=== PATIENT | male | born 1955 | race Caucasian/White ===

== ENCOUNTER 2017-11-17 15:53 | Emergency (ER) | payer SELFPAY ==
[2017-11-17] MEDS ORDERED: Sodium Chloride 0.9% 1,000 ML IV ONE (16:39)
[2017-11-17] MEDS ORDERED: Ondansetron 4 MG/2 ML SDV IVPUSH ONE (16:40)
[2017-11-17] MEDS ORDERED: Sodium Chloride 0.9% 10 ML Syringe FLUSH PRN (16:40)
--- NOTE | 2017-11-17 16:56 | EDM.PDOC ---
ED HPI GENERAL MEDICAL PROBLEM - General Chief Complaint: Genitourinary Problem Stated Complaint: PEEING BLOOD Time Seen by Provider: 11/17/17 16:27 Source of Information: Reports: Patient History Limitations: Reports: No Limitations - History of Present Illness INITIAL COMMENTS - FREE TEXT/NARRATIVE: 62-year-old male presents for evaluation and treatment of gross hematuria. Patient reports he is a history of bladder cancer, first diagnosed in 2014. He was managed at [facility] in [place], [place]. He states that he had a procedure done and was told that they removed all the cancer. He states it was recommended he proceed with chemotherapy and radiation but he refused. Patient reports over the last 6 months he is now had intermittent hematuria. States over the last 3 days it has been more constant. He is passing large clots. He is reporting difficulty with urination due to these clots. He reports urgency and dysuria. He is also complaining of lower back pain and pain to his lower abdomen. Additionally, he has appreciated with weakness, fatigue, lightheadedness and nausea. He has not checked his weight and is unsure if he's had any weight loss. No vomiting. Patient recently relocated to [place] from [place]. He has not yet established with a primary care provider since moving here. He is currently on [place] Medicaid and has not yet switched insurance. Patient reports he is a current every day smoker. States that he smokes at least a pack of cigarettes a day. reports he drinks beer daily. Drinks 5-8 beers per day. Lower Back Pain Score (Numeric/FACES): 6 - Related Data Allergies Allergy/AdvReac Type Severity Reaction Status Date / Time No Known Allergies Allergy Verified 11/17/17 15:59 Home Meds: Home Meds Albuterol [Ventolin HFA] 1 puff INH BID 11/17/17 [History] Aspirin 81 mg PO DAILY 11/17/17 [History] Cranberry 500 mg PO DAILY 11/17/17 [History] Losartan [Cozaar] 50 mg PO DAILY 11/17/17 [History] Past Medical History Cardiovascular History: Reports: Hypertension, Other (See Below) Other Cardiovascular History: mitral valve prolapse Respiratory History: Reports: COPD Gastrointestinal History: Reports: Other (See Below) Other Gastrointestinal History: perforated ulcer Oncologic (Cancer) History: Reports: Bladder Social & Family History - Tobacco Use Smoking Status *Q: Current Every Day Smoker Years of Tobacco use: 50 Packs/Tins Daily: 1 - Alcohol Use Days Per Week of Alcohol Use: 7 Number of Drinks Per Day: 6 Total Drinks Per Week: 42 - Recreational Drug Use Recreational Drug Use: No ED ROS GENERAL - Review of Systems Review Of Systems: See Below Constitutional: Reports: Weakness, Fatigue GI/Abdominal: Reports: Abdominal Pain (lower abdomen), Nausea. Denies: Vomiting : Reports: Dysuria, Frequency, Hematuria, Urgency Musculoskeletal: Reports: Back Pain (low back) ED EXAM, RENAL/ - Physical Exam Exam: See Below Exam Limited By: No Limitations General Appearance: Alert, WD/WN, No Apparent Distress Ears: Normal External Exam Nose: Normal Inspection Throat/Mouth: Normal Inspection, Normal Voice, No Airway Compromise Respiratory/Chest: No Respiratory Distress, Lungs Clear, Normal Breath Sounds Cardiovascular: Normal Peripheral Pulses, Regular Rate, Rhythm, No Murmur GI/Abdominal: Normal Bowel Sounds, Soft, Distended, Tender (lower abdomen) Back Exam: Normal Inspection. No: CVA Tenderness (L), CVA Tenderness (R) Neurological: Alert, Oriented, Normal Cognition Psychiatric: Normal Affect, Normal Mood Skin Exam: Warm, Dry, Normal Color Course - Vital Signs Last Recorded V/S: Last Vital Signs Temp 97.8 F 11/17/17 15:56 Pulse 97 11/17/17 15:56 Resp 16 11/17/17 15:56 BP 179/69 H 11/17/17 15:56 Pulse Ox 93 L 11/17/17 15:56 - Orders/Labs/Meds Orders: Active Orders 24 hr Category Date Time Status Peripheral IV Care [RC] . DIRECTED Care 11/17/17 16:43 Active Abdomen Pelvis w Cont [CT] Stat Exams 11/17/17 16:40 Taken Peripheral IV Insertion Adult [OM.PC] Routine Oth 11/17/17 16:39 Ordered Labs: Laboratory Tests 11/17/17 11/17/17 11/17/17 Range/Units 16:05 16:45 16:45 WBC 10.07 H (4.23-9.07) K/mm3 RBC 4.25 L (4.63-6.08) M/mm3 Hgb 13.3 L (13.7-17.5) gm/L Hct 39.1 L (40.1-51.0) % MCV 92.0 (79.0-92.2) fl MCH 31.3 (25.7-32.2) pg MCHC 34.0 (32.2-35.5) g/dl RDW Std Deviation 44.8 H (35.1-43.9) fL Plt Count 205 (163-337) K/mm3 MPV 10.0 (9.4-12.3) fl Neutrophils % (Manual) 77 H (40-60) % Band Neutrophils % 0 (0-10) % Lymphocytes % (Manual) 17 L (20-40) % Atypical Lymphs % 0 % Monocytes % (Manual) 3 (2-10) % Eosinophils % (Manual) 3 (0.8-7.0) % Basophils % (Manual) 0 L (0.2-1.2) Platelet Estimate Adequate Plt Morphology Comment Normal Anisocytosis 1+ slight RBC Morph Comment Not Reportable PT (9.5-12.1) SECONDS INR APTT (24-31) SECONDS Sodium 135 L (136-145) mEq/L Potassium 3.6 (3.5-5.1) mEq/L Chloride 100 (98-107) mEq/L Carbon Dioxide 24 (21-32) mEq/L Anion Gap 14.6 (5-15) BUN 4 L (7-18) mg/dL Creatinine 0.8 (0.7-1.3) mg/dL Est Cr Clr Drug Dosing 102.39 mL/min Estimated GFR (MDRD) > 60 (>60) mL/min BUN/Creatinine Ratio 5.0 L (14-18) Glucose 104 (80-115) mg/dL Calcium 8.5 (8.5-10.1) mg/dL Total Bilirubin 0.5 (0.2-1.0) mg/dL AST 14 L (15-37) U/L ALT 23 (16-63) U/L Alkaline Phosphatase 91 (46-116) U/L Total Protein 6.8 (6.4-8.2) g/dl Albumin 3.3 L (3.4-5.0) g/dl Globulin 3.5 gm/dL Albumin/Globulin Ratio 0.9 L (1-2) Urine Color Red H (Yellow) Urine Appearance Turbid H (Clear) Urine pH 8.5 H (5.0-8.0) Ur Specific [place] 1.010 (1.005-1.030) Urine Protein 3+ H (Negative) Urine Glucose (UA) Trace H (Negative) Urine Ketones 2+ H (Negative) Urine Occult Blood 3+ H (Negative) Urine Nitrite Negative (Negative) Urine Bilirubin 3+ H (Negative) Urine Urobilinogen >=8.0 H (0.2-1.0) Ur Leukocyte Esterase 3+ H (Negative) Urine RBC >100 H (0-5) /hpf Urine WBC >100 H (0-5) /hpf Ur Epithelial Cells 0-5 (0-5) /hpf Urine Bacteria Few (FEW) /hpf Urine Mucus Not seen (FEW) /hpf 11/17/17 Range/Units 16:45 WBC (4.23-9.07) K/mm3 RBC (4.63-6.08) M/mm3 Hgb (13.7-17.5) gm/L Hct (40.1-51.0) % MCV (79.0-92.2) fl MCH (25.7-32.2) pg MCHC (32.2-35.5) g/dl RDW Std Deviation (35.1-43.9) fL Plt Count (163-337) K/mm3 MPV (9.4-12.3) fl Neutrophils % (Manual) (40-60) % Band Neutrophils % (0-10) % Lymphocytes % (Manual) (20-40) % Atypical Lymphs % % Monocytes % (Manual) (2-10) % Eosinophils % (Manual) (0.8-7.0) % Basophils % (Manual) (0.2-1.2) Platelet Estimate Plt Morphology Comment Anisocytosis RBC Morph Comment PT 11.5 (9.5-12.1) SECONDS INR 1.06 APTT 29 (24-31) SECONDS Sodium (136-145) mEq/L Potassium (3.5-5.1) mEq/L Chloride (98-107) mEq/L Carbon Dioxide (21-32) mEq/L Anion Gap (5-15) BUN (7-18) mg/dL Creatinine (0.7-1.3) mg/dL Est Cr Clr Drug Dosing mL/min Estimated GFR (MDRD) (>60) mL/min BUN/Creatinine Ratio (14-18) Glucose (80-115) mg/dL Calcium (8.5-10.1) mg/dL Total Bilirubin (0.2-1.0) mg/dL AST (15-37) U/L ALT (16-63) U/L Alkaline Phosphatase (46-116) U/L Total Protein (6.4-8.2) g/dl Albumin (3.4-5.0) g/dl Globulin gm/dL Albumin/Globulin Ratio (1-2) Urine Color (Yellow) Urine Appearance (Clear) Urine pH (5.0-8.0) Ur Specific [place] (1.005-1.030) Urine Protein (Negative) Urine Glucose (UA) (Negative) Urine Ketones (Negative) Urine Occult Blood (Negative) Urine Nitrite (Negative) Urine Bilirubin (Negative) Urine Urobilinogen (0.2-1.0) Ur Leukocyte Esterase (Negative) Urine RBC (0-5) /hpf Urine WBC (0-5) /hpf Ur Epithelial Cells (0-5) /hpf Urine Bacteria (FEW) /hpf Urine Mucus (FEW) /hpf Meds: Medications Discontinued Medications Generic Name Dose Route Start Last Admin Trade Name Freq PRN Reason Stop Dose Admin Sodium Chloride 1,000 mls @ 999 mls/hr 11/17/17 16:39 11/17/17 16:50 Normal Saline IV 11/17/17 17:39 999 mls/hr ONETIME ONE Administration Iopamidol 100 ml 11/17/17 16:59 11/17/17 18:16 Isovue-300 (61%) IVPUSH 11/17/17 17:00 100 ml ONETIME ONE Administration Ondansetron HCl 4 mg 11/17/17 16:40 11/17/17 16:51 Zofran IVPUSH 11/17/17 16:41 4 mg ONETIME ONE Administration Sodium Chloride 10 ml 11/17/17 16:40 11/17/17 16:51 Saline Flush FLUSH 10 ml ASDIRECTED PRN Administration Keep Vein Open - Radiology Interpretation Free Text/Narrative:: CT of the abdomen and pelvis with IV contrast impression per vrad: Enhancing soft tissue mass along the right side of the bladder. Differential considerations would include transitional cell carcinoma. Bladder wall thickening is also present which may be consistent with cystitis. Right inguinal lymphadenopathy is present. - Re-Assessments/Exams Free Text/Narrative Re-Assessment/Exam: 11/17/17 19:47 I reviewed the labs and imaging with the patient. Case discussed with Dr. Gimenez, urologist [employer]. Unfortunately he will be out of town for the next few weeks to months. He recommend calling the clinic on Saturday to schedule with one of the urologists in [place]. Recommended increasing fluids and decrease in activity. Discussed labs and imaging with the patient. Will discharge home tonight. Warned of possibility of absent urine flow due to clots. He is to return to the ER this problem. Will discharge home at this time. Discharge instructions as documented. Departure - Departure Time of Disposition: 19:55 Disposition: Home, Self-Care 01 Condition: Fair Clinical Impression: Mass of bladder - Discharge Information *PRESCRIPTION DRUG MONITORING PROGRAM REVIEWED*: No *COPY OF PRESCRIPTION DRUG MONITORING REPORT IN PATIENT SOLOMON: No Instructions: Bladder Cancer, Hematuria, Adult Referrals: PCP,None [Primary Care Provider] - Brandon Camacho MD [Ordering Only Provider] - Forms: ED Department Discharge Additional Instructions: Follow-up with urology. Call [phone] tomorrow to schedule with an appointment with the urologist in [place]. Please let them know you were in the ED tonight and were found to have a mass in your bladder. Recommend Dr. Camacho at [facility] in [place]. Make sure you're drinking plenty of fluids. Limit activity. Please return to the ER if your symptoms change or worsen. Please return if you are unable to urinate due to clots. - My Orders Last 24 Hours: My Active Orders 11/17/17 16:39 Peripheral IV Insertion Adult [OM.PC] Routine 11/17/17 16:40 Abdomen Pelvis w Cont [CT] Stat 11/17/17 16:43 Peripheral IV Care [RC] . DIRECTED - Assessment/Plan Last 24 Hours: My Active Orders 11/17/17 16:39 Peripheral IV Insertion Adult [OM.PC] Routine 11/17/17 16:40 Abdomen Pelvis w Cont [CT] Stat 11/17/17 16:43 Peripheral IV Care [RC] . DIRECTED
[2017-11-17] MEDS ORDERED: Iopamidol 612 MG/ML 100 ML Bottle IVPUSH ONE (16:59)
--- NOTE | 2017-11-18 07:30 | CT ---
CT abdomen and pelvis Technique: Multiple axial sections were obtained from above the dome of the diaphragm inferiorly through the pubic symphysis. Intravenous contrast was utilized. No oral contrast has been given. Delayed images were also obtained through the abdomen and pelvis. Comparison: No prior abdominal imaging. Findings: Soft tissue abnormality seen along the lateral right side of the bladder. This finding measures about 5.6 cm x 3.2 cm. There appears to be some thickening of the bladder wall more posteriorly possibly due to extension of this finding. Delayed images show contrast within the distal ureters. Small bladder diverticulum seen off the left side. This finding is highly suspicious for transitional cell carcinoma. Multiple small low density findings are seen within the right kidney most likely due to small cortical cysts. Largest finding within the right kidney measures about 1.5 cm which is compatible with a cyst. Left kidney shows no focal abnormality. Contrast excretion is seen from both kidneys. Right and left ureters appear within normal limits. Soft tissue abnormality within the bladder appears to surround the distal right ureter. Visualized lung bases show nothing acute. Liver shows no focal parenchymal abnormality. Spleen appears within normal limits. Adrenal glands show no nodule. Pancreas is within normal limits. Gallbladder contains no calcified gallstones. Aorta shows atherosclerotic change which continues into the iliac vessels without aneurysm. No retroperitoneal adenopathy is seen. Appendix is seen and is normal in size. No pelvic mass or adenopathy is seen. Several slightly prominent lymph nodes are noted within the right inguinal region. Bone window settings were reviewed which appear within normal limits for the patient's age. Impression: 1. Soft tissue mass involving the right side of the bladder wall with measurements as noted above. Possible extension of this mass along the posterior bladder wall is seen. This finding is highly suspicious for transitional cell carcinoma. This finding surrounds a portion of the distal right ureter but causes no ureteral dilatation. Very small bladder diverticulum is noted off the left side of the bladder. 2. Low density lesions within the right kidney which most likely represent cysts. 3. Mild right inguinal adenopathy is seen. Diagnostic code #9 I agree with preliminary report from [facility], finalized at 11/17/17, 8:18 PM Central Time
== END 2017-11-17 20:00 | disposition home or self-care (01) ==
LOC: JD.ED 15:53
DX: N32.89 Other specified disorders of bladder (principal); R31.0 Gross hematuria; F17.210 Nicotine dependence, cigarettes, uncomplicated; J44.9 Chronic obstructive pulmonary disease, unspecified; Z79.82 Long term (current) use of aspirin; Z79.899 Other long term (current) drug therapy
CPT/HCPCS: 36415; 74177; 80053; 81001; 85007; 85027; 85610; 85730; 96361; 96374; 99284; J2405; J7040; J7050; Q9967

== ENCOUNTER 2017-11-21 09:33 | Emergency (ER) | payer MEDICAID ==
[2017-11-21] MEDS ORDERED: Sodium Chloride 0.9% 10 ML Syringe FLUSH PRN (10:13)
[2017-11-21] MEDS ORDERED: Sodium Chloride 0.9% 1,000 ML IV SCH (10:15)
[2017-11-21] MEDS ORDERED: cefTRIAXone 2 GM in Sodium Chloride 0.9% 100 ML IV ONE (12:19)
--- NOTE | 2017-11-21 12:51 | EDM.PDOC ---
ED HPI GENERAL MEDICAL PROBLEM - General Chief Complaint: Genitourinary Problem Stated Complaint: [facility] Time Seen by Provider: 11/21/17 09:46 Source of Information: Reports: Patient, EMS, Family History Limitations: Reports: No Limitations - History of Present Illness INITIAL COMMENTS - FREE TEXT/NARRATIVE: The patient presents by [facility] for hematuria. He is also lightheaded and feels like he may pass out. Family thinks he is pale. He was seen here on the for hematuria. He was found to have a 5.6 X 3.2 tumor on the right side of his bladder. He has a history of bladder cancer years ago. He had surgery but he did not get the chemo and radiation that was recommended. He was doing good until a few days ago. He can still urinate but he is passing blood and clots at times. He has no abdominal pain. He has no nausea, vomiting, chest pain or shortness of breath. He does have a follow up appointment next week with urology. Onset: Gradual Duration: Day(s): Severity: Moderate Improves with: Reports: None Worsens with: Reports: None Associated Symptoms: Denies: Chest Pain, Fever/Chills, Headaches, Nausea/ Vomiting, Shortness of Breath - Related Data Allergies Allergy/AdvReac Type Severity Reaction Status Date / Time No Known Allergies Allergy Verified 11/21/17 09:36 Home Meds: Home Meds Albuterol [Ventolin HFA] 1 puff INH BID 11/17/17 [History] Aspirin 81 mg PO DAILY 11/17/17 [History] Cranberry 500 mg PO DAILY 11/17/17 [History] Losartan [Cozaar] 50 mg PO DAILY 11/17/17 [History] Past Medical History Cardiovascular History: Reports: Hypertension, Other (See Below) Other Cardiovascular History: mitral valve prolapse Respiratory History: Reports: COPD Gastrointestinal History: Reports: Other (See Below) Other Gastrointestinal History: perforated ulcer Genitourinary History: Reports: Other (See Below) Other Genitourinary History: bladder tumor Oncologic (Cancer) History: Reports: Bladder - Past Surgical History Cardiovascular Surgical History: Reports: None GI Surgical History: Reports: None Male Surgical History: Reports: None Oncologic Surgical History: Reports: None Social & Family History - Family History Family Medical History: Noncontributory - Tobacco Use Smoking Status *Q: Current Every Day Smoker Years of Tobacco use: 44 Packs/Tins Daily: 1 - Caffeine Use Caffeine Use: Reports: Coffee - Recreational Drug Use Recreational Drug Use: No ED ROS GENERAL - Review of Systems Review Of Systems: See Below Constitutional: Reports: No Symptoms HEENT: Reports: No Symptoms Respiratory: Reports: No Symptoms Cardiovascular: Reports: Lightheadedness. Denies: Chest Pain Endocrine: Reports: No Symptoms GI/Abdominal: Denies: Abdominal Pain, Diarrhea, Nausea, Vomiting : Reports: Hematuria Musculoskeletal: Reports: No Symptoms ED EXAM, RENAL/ - Physical Exam Exam: See Below Exam Limited By: No Limitations General Appearance: Alert, No Apparent Distress Ears: Normal External Exam Nose: Normal Inspection Head: Atraumatic, Normocephalic Neck: Normal Inspection Respiratory/Chest: No Respiratory Distress, Lungs Clear, Normal Breath Sounds Cardiovascular: Regular Rate, Rhythm, No Edema, No Murmur GI/Abdominal: Soft, Non-Tender, No Organomegaly, No Mass Extremities: Normal Inspection Neurological: Alert, Oriented, No Motor/Sensory Deficits Skin Exam: Pallor Course - Vital Signs Last Recorded V/S: Last Vital Signs Temp 98.9 F 11/21/17 12:43 Pulse 87 11/21/17 12:43 Resp 16 11/21/17 09:36 BP 156/75 H 11/21/17 12:43 Pulse Ox 99 11/21/17 09:36 - Orders/Labs/Meds Orders: Active Orders 24 hr Category Date Time Status Peripheral IV Care [RC] . DIRECTED Care 11/21/17 10:15 Active CULTURE URINE [RM] Stat Lab 11/21/17 09:55 Received PATIENT RETYPE [BBK] Stat Lab 11/21/17 10:40 Results RED BLOOD CELLS LP [BBK] Stat Lab 11/21/17 10:40 Results TYPE AND SCREEN [BBK] Stat Lab 11/21/17 10:40 Results Sodium Chloride 0.9% [Normal Saline] 1,000 ml Med 11/21/17 10:15 Active IV ASDIRECTED Sodium Chloride 0.9% [Saline Flush] Med 11/21/17 10:13 Active 10 ml FLUSH ASDIRECTED PRN cefTRIAXone [Rocephin] 2 gm Med 11/21/17 12:19 Active Sodium Chloride 0.9% [Normal Saline] 100 ml IV ONETIME Peripheral IV Insertion Adult [OM.PC] Stat Oth 11/21/17 10:13 Ordered Transfuse RBC [Transfuse Red Blood Cells] [COMM] Stat Oth 11/21/17 11:17 Ordered Medication Orders Sodium Chloride (Normal Saline) 1,000 mls @ 125 mls/hr IV ASDIRECTED PAM Last Admin: 11/21/17 10:30 Dose: 125 mls/hr Ceftriaxone Sodium 2 gm/ (Sodium Chloride) 100 mls @ 100 mls/hr IV ONETIME ONE Stop: 11/21/17 13:18 Sodium Chloride (Saline Flush) 10 ml FLUSH ASDIRECTED PRN PRN Reason: Keep Vein Open Last Admin: 11/21/17 10:30 Dose: 10 ml Labs: Laboratory Tests 11/21/17 11/21/17 11/21/17 Range/Units 09:55 10:40 10:40 WBC 9.56 H (4.23-9.07) K/mm3 RBC 2.49 L (4.63-6.08) M/mm3 Hgb 7.8 L (13.7-17.5) gm/L Hct 23.6 L (40.1-51.0) % MCV 94.8 H (79.0-92.2) fl MCH 31.3 (25.7-32.2) pg MCHC 33.1 (32.2-35.5) g/dl RDW Std Deviation 44.6 H (35.1-43.9) fL Plt Count 258 (163-337) K/mm3 MPV 9.9 (9.4-12.3) fl Neut % (Auto) 70.9 H (34.0-67.9) % Lymph % (Auto) 13.5 L (21.8-53.1) % [place] % (Auto) 11.1 (5.3-12.2) % Eos % (Auto) 2.9 (0.8-7.0) Baso % (Auto) 1.0 (0.1-1.2) % Neut # (Auto) 6.77 H (1.78-5.38) K/mm3 Lymph # (Auto) 1.29 L (1.32-3.57) K/mm3 [place] # (Auto) 1.06 H (0.30-0.82) K/mm3 Eos # (Auto) 0.28 (0.04-0.54) K/mm3 Baso # (Auto) 0.10 H (0.01-0.08) K/mm3 Manual Slide Review Abnormal smear PT 11.5 (9.5-12.1) SECONDS INR 1.06 APTT 27 (24-31) SECONDS Sodium (136-145) mEq/L Potassium (3.5-5.1) mEq/L Chloride (98-107) mEq/L Carbon Dioxide (21-32) mEq/L Anion Gap (5-15) BUN (7-18) mg/dL Creatinine (0.7-1.3) mg/dL Est Cr Clr Drug Dosing mL/min Estimated GFR (MDRD) (>60) mL/min BUN/Creatinine Ratio (14-18) Glucose (80-115) mg/dL Calcium (8.5-10.1) mg/dL Total Bilirubin (0.2-1.0) mg/dL AST (15-37) U/L ALT (16-63) U/L Alkaline Phosphatase (46-116) U/L Total Protein (6.4-8.2) g/dl Albumin (3.4-5.0) g/dl Globulin gm/dL Albumin/Globulin Ratio (1-2) Urine Color Red H (Yellow) Urine Appearance Clear (Clear) Urine pH 6.0 (5.0-8.0) Ur Specific [place] 1.010 (1.005-1.030) Urine Protein 3+ H (Negative) Urine Glucose (UA) Negative (Negative) Urine Ketones 1+ H (Negative) Urine Occult Blood 3+ H (Negative) Urine Nitrite Positive H (Negative) Urine Bilirubin 3+ H (Negative) Urine Urobilinogen 1.0 (0.2-1.0) Ur Leukocyte Esterase 3+ H (Negative) Urine RBC >100 H (0-5) /hpf Urine WBC 10-20 H (0-5) /hpf Ur Epithelial Cells Not seen (0-5) /hpf Urine Bacteria Many H (FEW) /hpf Urine Mucus Not seen (FEW) /hpf Blood Type Gel Antibody Screen Crossmatch 11/21/17 11/21/17 Range/Units 10:40 10:40 WBC (4.23-9.07) K/mm3 RBC (4.63-6.08) M/mm3 Hgb (13.7-17.5) gm/L Hct (40.1-51.0) % MCV (79.0-92.2) fl MCH (25.7-32.2) pg MCHC (32.2-35.5) g/dl RDW Std Deviation (35.1-43.9) fL Plt Count (163-337) K/mm3 MPV (9.4-12.3) fl Neut % (Auto) (34.0-67.9) % Lymph % (Auto) (21.8-53.1) % [place] % (Auto) (5.3-12.2) % Eos % (Auto) (0.8-7.0) Baso % (Auto) (0.1-1.2) % Neut # (Auto) (1.78-5.38) K/mm3 Lymph # (Auto) (1.32-3.57) K/mm3 [place] # (Auto) (0.30-0.82) K/mm3 Eos # (Auto) (0.04-0.54) K/mm3 Baso # (Auto) (0.01-0.08) K/mm3 Manual Slide Review PT (9.5-12.1) SECONDS INR APTT (24-31) SECONDS Sodium 133 L (136-145) mEq/L Potassium 3.4 L (3.5-5.1) mEq/L Chloride 99 (98-107) mEq/L Carbon Dioxide 24 (21-32) mEq/L Anion Gap 13.4 (5-15) BUN 5 L (7-18) mg/dL Creatinine 0.8 (0.7-1.3) mg/dL Est Cr Clr Drug Dosing 102.39 mL/min Estimated GFR (MDRD) > 60 (>60) mL/min BUN/Creatinine Ratio 6.3 L (14-18) Glucose 102 (80-115) mg/dL Calcium 8.1 L (8.5-10.1) mg/dL Total Bilirubin 0.3 (0.2-1.0) mg/dL AST 14 L (15-37) U/L ALT 19 (16-63) U/L Alkaline Phosphatase 77 (46-116) U/L Total Protein 6.0 L (6.4-8.2) g/dl Albumin 2.9 L (3.4-5.0) g/dl Globulin 3.1 gm/dL Albumin/Globulin Ratio 0.9 L (1-2) Urine Color (Yellow) Urine Appearance (Clear) Urine pH (5.0-8.0) Ur Specific Baker (1.005-1.030) Urine Protein (Negative) Urine Glucose (UA) (Negative) Urine Ketones (Negative) Urine Occult Blood (Negative) Urine Nitrite (Negative) Urine Bilirubin (Negative) Urine Urobilinogen (0.2-1.0) Ur Leukocyte Esterase (Negative) Urine RBC (0-5) /hpf Urine WBC (0-5) /hpf Ur Epithelial Cells (0-5) /hpf Urine Bacteria (FEW) /hpf Urine Mucus (FEW) /hpf Blood Type AB POSITIVE Gel Antibody Screen Negative Crossmatch See Detail Meds: Medications Generic Name Dose Route Start Last Admin Trade Name Freq PRN Reason Stop Dose Admin Sodium Chloride 1,000 mls @ 125 mls/hr 11/21/17 10:15 11/21/17 10:30 Normal Saline IV 125 mls/hr ASDIRECTED PAM Administration Ceftriaxone Sodium 2 gm/ 100 mls @ 100 mls/hr 11/21/17 12:19 Sodium Chloride IV 11/21/17 13:18 ONETIME ONE Sodium Chloride 10 ml 11/21/17 10:13 11/21/17 10:30 Saline Flush FLUSH 10 ml ASDIRECTED PRN Administration Keep Vein Open - Re-Assessments/Exams Free Text/Narrative Re-Assessment/Exam: 11/21/17 12:49 I ordered an IV NS, labs and a UA. His WBC was elevated slightly at 9.56. His Hgb was low at 7.8. He was at 13.3. four days ago. I have ordered a unit of blood. His PT and PTT look good. His K was a little low at 3.4. His UA shows blood and nitrites. He could have a UTI on top of all this so I ordered a culture and a dose of rocephin 2 grams IV. I feel he needs to go to [place]. I talked to the urologist Dr Fraser and he agreed. I also talked with the hospitalist Dr García and he accepted the patient. Departure - Departure Time of Disposition: 12:55 Disposition: DC/Tfer to [facility] 02 Condition: Fair Clinical Impression: Mass of bladder Hematuria Qualifiers: Hematuria type: gross Qualified Code(s): R31.0 - Gross hematuria Anemia Qualifiers: Anemia type: other cause Other causes of anemia: other cause, not classified Qualified Code(s): D64.89 - Other specified anemias - Discharge Information Referrals: PCP,None [Primary Care Provider] - - My Orders Last 24 Hours: My Active Orders 11/21/17 09:55 CULTURE URINE [RM] Stat 11/21/17 10:13 Sodium Chloride 0.9% [Saline Flush] 10 ml FLUSH ASDIRECTED PRN Peripheral IV Insertion Adult [OM.PC] Stat 11/21/17 10:15 Peripheral IV Care [RC] . DIRECTED Sodium Chloride 0.9% [Normal Saline] 1,000 ml IV ASDIRECTED 11/21/17 10:40 PATIENT RETYPE [BBK] Stat RED BLOOD CELLS LP [BBK] Stat TYPE AND SCREEN [BBK] Stat 11/21/17 11:17 Transfuse RBC [Transfuse Red Blood Cells] [COMM] Stat 11/21/17 12:19 cefTRIAXone [Rocephin] 2 gm Sodium Chloride 0.9% [Normal Saline] 100 ml IV ONETIME - Assessment/Plan Last 24 Hours: My Active Orders 11/21/17 09:55 CULTURE URINE [RM] Stat 11/21/17 10:13 Sodium Chloride 0.9% [Saline Flush] 10 ml FLUSH ASDIRECTED PRN Peripheral IV Insertion Adult [OM.PC] Stat 11/21/17 10:15 Peripheral IV Care [RC] . DIRECTED Sodium Chloride 0.9% [Normal Saline] 1,000 ml IV ASDIRECTED 11/21/17 10:40 PATIENT RETYPE [BBK] Stat RED BLOOD CELLS LP [BBK] Stat TYPE AND SCREEN [BBK] Stat 11/21/17 11:17 Transfuse RBC [Transfuse Red Blood Cells] [COMM] Stat 11/21/17 12:19 cefTRIAXone [Rocephin] 2 gm Sodium Chloride 0.9% [Normal Saline] 100 ml IV ONETIME
== END 2017-11-21 13:27 ==
LOC: JD.ED 09:33
DX: R31.0 Gross hematuria (principal); N32.9 Bladder disorder, unspecified; D64.89 Other specified anemias; I10 Essential (primary) hypertension; J44.9 Chronic obstructive pulmonary disease, unspecified; F17.210 Nicotine dependence, cigarettes, uncomplicated; Z79.82 Long term (current) use of aspirin; Z79.899 Other long term (current) drug therapy
CPT/HCPCS: 36415; 36430; 80053; 81001; 85025; 85610; 85730; 86850; 86900; 86901; 86922; 87086; 96361; 96365; 99285; J0696; J7030; J7040; J7050; P9016